=== PATIENT | female | born 1985 | race Two or more races ===

== ENCOUNTER 2018-08-13 16:38 | Emergency (ER) | payer SELFPAY ==
[~2018-08-13] VITALS: Ht 157.5 cm; Wt 65.5 kg
[2018-08-13 17:06] VITALS: BP 123/79
[2018-08-13 17:51] LABS: Basophils # (auto) 0 uL; Basophils % (auto) 0.2 % (0.0-2.0); Eosinophils # (auto) 0.1 uL; Eosinophils % (auto) 0.5 % (0.0-7.0); Hematocrit 40.4 % (36.0-46.0); Hemoglobin 13.8 g/dL (12.2-16.2); Lymphocytes # (auto) 2.1 uL; Lymphocytes % (auto) 20.8 % (10.0-50.0); Mean Corpuscular Hemoglobin 31.5 pg (28.0-32.0); Mean Corpuscular Hgb Conc. 34.2 g/dL (32.0-36.0); Monocytes # (auto) 0.6 uL; Monocytes % (auto) 6.1 % (0.0-12.0); Neutrophils # (auto) 7.4 uL; Neutrophils % (auto) 72.4 % (37.0-80.0); Nucleated Red Blood Cells % 0.1 %; Platelet Count (auto) 294 10^3/uL (140-450); Red Blood Cells 4.39 10^6/uL (4.0-5.20); Red Cell Distribution Width 12.9 % (11.8-14.3); White Blood Cell 10.2 10^3/uL (4.4-10.8)
[2018-08-13 18:01] LABS: Urine Bacteria FEW /hpf (None Seen); Urine Blood 2+ /uL (Negative); Urine Specific Gravity 1.005 (1.001-1.035); Urine WBC 1 /hpf (0 - 5)
[2018-08-13 18:14] LABS: Albumin 3.7 g/dL (3.4-5.0); Potassium 3.8 mmol/L (3.5-5.1)
[2018-08-13 18:16] LABS: BUN/Creatinine Ratio 19.5
[2018-08-13 18:18] LABS: Bilirubin, Total 0.2 mg/dL (0.2-1.0); Total Protein 8.1 g/dL (6.4-8.2)
== END 2018-08-14 02:32 | disposition left against medical advice (07) ==
LOC: ER 16:50
DX: N93.9 Abnormal uterine and vaginal bleeding, unspecified (principal); Z53.21 Procedure and treatment not carried out due to patient leaving prior to being seen by health care provider
CPT/HCPCS: 36415; 80053; 81001; 84702; 85025

== ENCOUNTER 2018-11-09 20:27 | Observation (INO) | payer MEDICAID ==
[2018-11-09 21:14] LABS: Urine Bacteria MOD /hpf (None Seen); Urine Blood 2+ /uL (Negative); Urine Hyaline Cast FEW /lpf (0 - 2); Urine Specific Gravity 1.003 (1.001-1.035); Urine WBC 8 /hpf (0 - 5)
== END 2018-11-09 21:52 | disposition home or self-care (01) | DRG 566 ==
LOC: LDRP 20:27
PROVIDERS: ADMIT Specialist; ATTEND Specialist
DX: O21.2 Late vomiting of pregnancy (principal); O26.892 Other specified pregnancy related conditions, second trimester; R19.7 Diarrhea, unspecified; R10.30 Lower abdominal pain, unspecified; R50.9 Fever, unspecified; Z3A.21 21 weeks gestation of pregnancy
CPT/HCPCS: 59025; 81001; 81002; 87086; G0378; 87088; 87186

== ENCOUNTER 2018-11-10 16:54 | Emergency (ER) | payer MEDICAID ==
[2018-11-10 17:43] LABS: Urine Bacteria MOD /hpf (None Seen); Urine Blood 2+ /uL (Negative); Urine Budding Yeast FEW /hpf (None Seen); Urine Specific Gravity 1.011 (1.001-1.035); Urine WBC 37 /hpf (0 - 5)
[2018-11-10 18:28] LABS: Hemoglobin 12.3 g/dL (12.2-16.2); Red Blood Cells 3.94 10^6/uL (4.0-5.20); White Blood Cell 10.3 10^3/uL (4.4-10.8)
[2018-11-10 18:35] LABS: Hematocrit 36.1 % (36.0-46.0); Mean Corpuscular Hemoglobin 31.3 pg (28.0-32.0); Mean Corpuscular Hgb Conc. 34.2 g/dL (32.0-36.0); Mean Corpuscular Volume 91.6 fL (80.0-100.0); Platelet Count (auto) 243 10^3/uL (140-450); Red Cell Distribution Width 12.7 % (11.8-14.3)
[2018-11-10 18:40] LABS: Basophils % (manual) 0 (0.0-2.0); Blast Cells 0; Eosinophils % (manual) 0 (0-7); Metamyelocytes % 0; Myelocytes % 0; Promyelocytes % 0; Reactive Lymphocytes 0
[2018-11-10 18:52] LABS: Albumin 2.7 g/dL (3.4-5.0); BUN/Creatinine Ratio 13.7; Potassium 3.2 mmol/L (3.5-5.1)
[2018-11-10 18:56] LABS: Bilirubin, Total 0.3 mg/dL (0.2-1.0); Total Protein 6.7 g/dL (6.4-8.2)
[2018-11-10 19:24] LABS: Band Neutrophils % (manual) 18; Lymphocytes % (manual) 7 (10.0-50.0); Monocytes % (manual) 4 (0-12)
[2018-11-10 19:30] VITALS: BP 106/59
== END 2018-11-10 20:01 | disposition home or self-care (01) ==
LOC: ER 16:54
DX: O23.42 Unspecified infection of urinary tract in pregnancy, second trimester (principal); O98.812 Other maternal infectious and parasitic diseases complicating pregnancy, second trimester; B37.9 Candidiasis, unspecified; Z3A.21 21 weeks gestation of pregnancy
CPT/HCPCS: 36415; 80053; 81001; 84702; 85007; 85027

== ENCOUNTER 2018-12-27 12:00 | Observation (INO) | payer MEDICAID ==
[2018-12-27] MEDS ORDERED: PREN-96 PO (12:49)
== END 2018-12-27 14:25 | disposition home or self-care (01) | DRG 566 ==
LOC: LDRP 12:00
PROVIDERS: ADMIT Obstetrics & Gynecology; ATTEND Obstetrics & Gynecology
DX: O26.892 Other specified pregnancy related conditions, second trimester (principal); R50.9 Fever, unspecified; R51 Headache; Z3A.27 27 weeks gestation of pregnancy
CPT/HCPCS: 59025; 81002; G0378

== ENCOUNTER 2019-03-06 09:10 | Inpatient (IN) | payer MEDICAID ==
[~2019-03-06] VITALS: Ht 160 cm; Wt 70.8 kg
[2019-03-06] VITALS (12 sets, daily range): BP systolic 101–138; BP diastolic 51–88
[~2019-03-06 09:10] MED LIST: PREN-96 PO
[2019-03-06] MEDS ORDERED: TETRACAINE 1% INJ 2 ML VIAL IJ ONE (10:47)
[2019-03-06] MEDS ORDERED: MORPHINE SULF(PF) 0.5MG/ML 10ML VIAL ONE (10:49)
[2019-03-06] MEDS ORDERED: OXYTOCIN 10 UNIT/ML 10ML VIAL ONE (10:49)
[2019-03-06] MEDS ORDERED: fentaNYL CITRATE 100 MCG/2 ML VL ONE (10:49)
[2019-03-06] MEDS ORDERED: SODIUM CHLORIDE LOCK 10 ML ONE (10:49)
[2019-03-06] MEDS ORDERED: MIDAZOLAM HCL 1MG/1ML-2 ML VIAL ONE (10:49)
[2019-03-06] MEDS ORDERED: ceFAZolin 1GM VL ONE (10:49)
[2019-03-06] MEDS ORDERED: ONDANSETRON HCL 4 MG/2 ML VIAL ONE ×2 (10:50→11:33)
[2019-03-06 10:51] LABS: Basophils # (auto) 0 uL; Basophils % (auto) 0.1 % (0.0-2.0); Eosinophils # (auto) 0 uL; Eosinophils % (auto) 0.1 % (0.0-7.0); Hematocrit 35.9 % (36.0-46.0); Hemoglobin 11.9 g/dL (12.2-16.2); Lymphocytes # (auto) 1.3 uL; Lymphocytes % (auto) 10.9 % (10.0-50.0); Mean Corpuscular Hemoglobin 29.3 pg (28.0-32.0); Mean Corpuscular Volume 88.8 fL (80.0-100.0); Monocytes # (auto) 0.7 uL; Monocytes % (auto) 5.7 % (0.0-12.0); Neutrophils # (auto) 9.9 uL; Neutrophils % (auto) 83.2 % (37.0-80.0); Platelet Count (auto) 370 10^3/uL (140-450); Red Blood Cells 4.05 10^6/uL (4.0-5.20); White Blood Cell 11.8 10^3/uL (4.4-10.8)
[2019-03-06 11:12] LABS: INR < 0.93 (0.9-1.15); Partial Thromboplastin Time 26.5 sec (23.64-32.05)
[2019-03-06 11:20] LABS: Albumin 2.3 g/dL (3.4-5.0); Calcium 8.4 mg/dL (8.5-10.1); Potassium 3.6 mmol/L (3.5-5.1)
[2019-03-06 11:22] LABS: BUN/Creatinine Ratio 11.5
[2019-03-06 11:24] LABS: Bilirubin, Total 0.4 mg/dL (0.2-1.0); Total Protein 6.9 g/dL (6.4-8.2)
[2019-03-06] MEDS ORDERED: CARBOPROST TROMETHAMINE 250 MCG/1ML VIAL IM ONE ×2 (11:33→11:48)
[2019-03-06] MEDS ORDERED: METOCLOPRAMIDE HCL 5MG/ml INJ 2ml VIAL ONE (11:33)
[2019-03-06] MEDS ORDERED: METHYLERGONOVINE MALEATE 0.2 MG/ML AMP IM ONE (11:45)
[2019-03-06 11:54] LABS: Urine Bacteria NONE SEEN /hpf (None Seen); Urine Blood Negative /uL (Negative); Urine Specific Gravity 1.011 (1.001-1.035); Urine WBC 8 /hpf (0 - 5)
[2019-03-06] MEDS ORDERED: LACT. RINGERS/OXYTOCIN 20UNITS 1,000 ML IV SCH (12:20)
[2019-03-06] MEDS ORDERED: NALOXONE HCL 0.4 MG/ML VIAL IV PRN (12:30)
[2019-03-06] MEDS ORDERED: diphenhdrAMINE HCL 50 MG/1 ML VL IV PRN (12:30)
[2019-03-06] MEDS ORDERED: ceFAZolin 1GM/50ML 50 ML IV SCH (12:30)
[2019-03-06] MEDS ORDERED: IOHEXOL 300 MG/ML 100ML BOTTLE IJ ONE (12:32)
[2019-03-06] MEDS ORDERED: IOTHALAMATE MEGLUMINE INJ 250ML BOT UR ONE (13:24)
[2019-03-06] MEDS: HYDROmorphone HCL 2 MG/ML VL IV PRN ×2 (14:02→14:17)
--- NOTE | 2019-03-06 15:15 | NUR ---
Pt received from pacu. Transported on bed. SBAR received from IGNACIO Rios. Incision on lower abdomen covered with dressing. Small amount of serous fluid, marked with sharpie. IV in right hand 20g. Infusing LR with pitocin. Placed on pump. Abdominal binder in place. Peripad clean. No vaginal bleeding noted. Johnson catheter draining red fluid, no kinks in tubing, hanging below bladder, patent. Started on frequent vital signs. SCDs on bilateral lower extremities. Placed on machine working properly. Educated on purpose of SCDs to prevent blood clots. IS at [facility]. Educated on purpose to prevent PNA and need to use 10x hour. Verbalized understanding. Demonstrated proper technique reached 750. Received order from Dr Klein to replace 16f johnson with 20g johnson and to have patient keep johnson in for four weeks. Fundus 1 above umbilicus firm. Board updated. Educated on POC, pain management. Verbalized understanding. FOB, and 2 children at [facility]. Addendum: 03/06/19 at 1729 by LORENZA HOLM RN Pt received hemabate, cytotec, methergine in PACU.
--- NOTE | 2019-03-06 15:30 | NUR ---
16 F catheter removed. 20 F catheter placed per policy under sterile technique. Patent tolerated well. Calzada place below bladder, no kinks noted, secured to right leg, patent draining red fluid. Pt tolerated well.
--- NOTE | 2019-03-06 16:45 | NUR ---
Dr Anand made rounds. Lashonda kapoor translated. Informed of bladder damage that occured during due to the lower position of . Johnson catheter will remain in place for four weeks. Pt will f/u with Dr Anand weekly and will f/u with Dr Klein in four weeks. Dr Anand informed pt that she has only on kidney that may need an US on a follow up appointment, but the patient's ureter is working properly. Educated on prescription for macrobid due to johnson placement. Received order for social service consult for home health regarding johnson cath care. All questions and concerns answered by Dr Anand. Pt and family verbalized understanding of all plans of care, and new diagnosis.
[2019-03-06] MEDS: ceFAZolin 1GM/50ML 50 ML IV SCH (17:45)
[2019-03-06] MEDS ORDERED: LACTATED RINGER'S 1,000 ML IV SCH (18:00)
--- NOTE | 2019-03-06 18:40 | NUR ---
Dressing to lower abdominal incision intact, small amount of serosanguineous drainage noted. Drainage circled, timed and dated. Will continue to monitor. Addendum: 03/06/19 at 2054 by Fina Bui RN Amended: Links added.
[2019-03-06 21:18] LABS: Basophils # (auto) 0 uL; Basophils % (auto) 0.1 % (0.0-2.0); Eosinophils # (auto) 0 uL; Hematocrit 24.7 % (36.0-46.0); Hemoglobin 8.7 g/dL (12.2-16.2); Lymphocytes # (auto) 0.8 uL; Lymphocytes % (auto) 4.5 % (10.0-50.0); Mean Corpuscular Hemoglobin 31.5 pg (28.0-32.0); Mean Corpuscular Hgb Conc. 35.4 g/dL (32.0-36.0); Monocytes # (auto) 0.6 uL; Monocytes % (auto) 3.7 % (0.0-12.0); Neutrophils # (auto) 16.2 uL; Neutrophils % (auto) 91.7 % (37.0-80.0); Platelet Count (auto) 292 10^3/uL (140-450); Red Blood Cells 2.78 10^6/uL (4.0-5.20); Red Cell Distribution Width 15.1 % (11.8-14.3); White Blood Cell 17.7 10^3/uL (4.4-10.8)
[2019-03-06] MEDS: MORPHINE SULFATE 4 MG/ML SYR/VIAL IV PRN (21:59)
--- NOTE | 2019-03-06 22:30 | NUR ---
Dr. Klein at bedside to assess patient post . Orders received for 500mL LR bolus now x 1, and to increase IV fluid rate to 175mL/hr. Orders will be followed.
[2019-03-07] VITALS (25 sets, daily range): BP systolic 89–130; BP diastolic 50–67
[2019-03-07] MEDS: ceFAZolin 1GM/50ML 50 ML IV SCH ×3 (01:59→17:31)
[2019-03-07] MEDS: MORPHINE SULFATE 4 MG/ML SYR/VIAL IV PRN ×3 (03:33→17:28)
[2019-03-07] MEDS ORDERED: RHO (D) IMMUNE GLOBULIN 300 MCG INJ IM ONE (03:45)
[2019-03-07 06:06] LABS: RPR Non Reactive (Non Reactive)
[2019-03-07 07:16] LABS: Basophils # (auto) 0 uL; Basophils % (auto) 0.2 % (0.0-2.0); Eosinophils # (auto) 0 uL; White Blood Cell 13.6 10^3/uL (4.4-10.8)
[2019-03-07 07:21] LABS: Hematocrit 19.7 % (36.0-46.0); Lymphocytes # (auto) 1.5 uL; Lymphocytes % (auto) 10.7 % (10.0-50.0); Mean Corpuscular Hemoglobin 30.8 pg (28.0-32.0); Mean Corpuscular Hgb Conc. 34.6 g/dL (32.0-36.0); Mean Corpuscular Volume 89.2 fL (80.0-100.0); Monocytes # (auto) 0.9 uL; Monocytes % (auto) 6.3 % (0.0-12.0); Neutrophils # (auto) 11.2 uL; Neutrophils % (auto) 82.8 % (37.0-80.0); Platelet Count (auto) 249 10^3/uL (140-450); Red Blood Cells 2.21 10^6/uL (4.0-5.20); Red Cell Distribution Width 15.2 % (11.8-14.3)
[2019-03-07 07:37] LABS: Hemoglobin 6.8 g/dL (12.2-16.2)
--- NOTE | 2019-03-07 07:45 | NUR ---
NOTIFIED DR. CAIN, STATUS UPDATE GIVEN, DR. CAIN NOTIFIED OF RECENT CBC RESULTS (HGB 6.8, HCT 19.7, PLT 249) ALL TRENDING VITAL SIGNS, TRENDING HOURLY URINE OUTPUT, HEMATURIA NOTED, PT DENIES ANY HEADACHE, DIZZINESS OR NAUSEA. ORDERS RECEIVED FROM DR. CAIN TO TRANSFUSE 2 UNITS OF PRBC'S AND REPEAT CBC LAB DRAW 2 HOURS POST TRANSFUSION. READ BACK AND VERIFIED ORDERS. WILL CARRY OUT.
--- NOTE | 2019-03-07 08:05 | NUR ---
DR. CAIN AT PT BEDSIDE FOR PT EVALUATION, PT UPDATED ON CURRENT STATUS. ORDERS RECEIVED FROM DR. CAIN TO CONTINUE PT ON BEDREST, CLEAR LIQUID DIET, DECREASE LR RATE TO 30ML/HR, AND ANCEF 1GM Q8HRS. READ BACK AND VERIFIED ORDERS. WILL CARRY OUT. SHIFT LEADER PROVIDED.
[2019-03-07] MEDS ORDERED: LACTATED RINGER'S 1,000 ML IV SCH (08:15)
--- NOTE | 2019-03-07 08:55 | NUR ---
BLOOD TRANSFUSION EDUCATION PROVIDED TO PATIENT VIA BLUE PHONE BY INFORMATION TECHNOLOGY ARCHITECT ÁNGEL, INFORMATION TECHNOLOGY ARCHITECT ID #[id number]. PT EDUCATED IN [place] THE PLAN OF CARE INCLUDING THE INDICATION FOR A BLOOD TRANSFUSION AND ALL THE RISKS AND BENEFITS DISCUSSED. PT GIVEN BLOOD PRODUCTS PAMPHLET AND EDUCATIONS PROVIDED. ALL PTS QUESTIONS AND CONCERNS ADDRESSED AT THIS TIME.
--- NOTE | 2019-03-07 08:55 | NUR ---
IV insertion IV access obtained, via clean sterile technique by inserting 20 gauge catheter at RIGHT FOREARM after 1 attempt(s). IV secured properly. No trauma to site. Patient tolerated procedure well.
--- NOTE | 2019-03-07 09:15 | NUR ---
BLOOD TRANSFUSION 1ST UNIT OF O- BLOOD STARTED AT [address] CAIN ORDER, BASELINE VITALS SIGNS TAKEN AND WITHIN NORMAL LIMITS, PT DENIES ANY S/S OF DISTRESS OR SOB. INFUSION RATE STARTED AT 75ML/HR. WILL CONTINUE TO MONITOR.
--- NOTE | 2019-03-07 11:53 | NUR ---
1ST UNIT PRBC'S TRANSFUSED 1 UNIT OF PRBC'S TRANSFUSED. NO TRANSFUSION REACTIONS NOTED AT THIS TIME, VITAL SIGNS WITHIN PATIENTS NORMAL LIMITS, TOLERATING WELL. 2ND UNIT OF PRBC'S PREPARING TO BE HUNG. WILL CONTINUE OT MONITOR.
--- NOTE | 2019-03-07 12:15 | NUR ---
NOTIFIED DR. CAIN, STATUS UPDATE GIVEN, 1ST UNIT OF PRBC'S TRANSFUSED. DR. CAIN NOTIFIED OF TRENDING VITAL SIGNS GIVEN, TRENDING URINE OUTPUTS GIVEN, PT REQUESTING TO USE THE BATHROOM FOR A BOWEL MOVEMENT. PT STABLE AT THIS TIME. DR. CAIN STATED THAT PT CAN AMBULATE TO THE BATHROOM. PT STABLE AT THIS TIME. READ BACK AND VERIFIED ORDERS. WILL CARRY OUT.
--- NOTE | 2019-03-07 12:25 | NUR ---
Ambulation: Patient OOB with standby assistance by RN. Patient ambulated to bathroom with steady gait. Patient unable to have a bowel movement at this time. Pts johnson catheter is patent and draining red wine colored urine to gravity. Pericare teaching provided with returned demonstration by patient. Clean gown provided and bed linen changed. Patient ambulated back to bed with steady gait and no distress noted. Preparing to hang 2nd unit of blood. Will continue to monitor.
--- NOTE | 2019-03-07 12:40 | NUR ---
BLOOD TRANSFUSION 2ND UNIT OF O- BLOOD STARTED AT [address] CAIN ORDER, BASELINE VITALS SIGNS TAKEN AND WITHIN NORMAL LIMITS, PT DENIES ANY S/S OF DISTRESS OR SOB. INFUSION RATE STARTED AT 75ML/HR. WILL CONTINUE TO MONITOR.
--- NOTE | 2019-03-07 14:25 | NUR ---
DR. MCKEON AT PT BEDSIDE, STATUS UPDATE GIVEN, TRENDING VITAL SIGNS GIVEN, TRENDING URINE OUTPUTS GIVEN, TRENDING URINE OUTPUT APPEARANCE THIS MORNING IN ANNE BAG WAS A RED WINE COLOR, NOW CLEAR YELLOW URINE IN ANNE BAG. NO S/S OF DISTRESS OR SOB NOTED. PT DENIES ANY PAIN AT THIS TIME. WILL CONTINUE TO MONITOR.
--- NOTE | 2019-03-07 15:28 | NUR ---
2ND UNIT PRBC'S TRANSFUSED 2 UNIT OF PRBC'S TRANSFUSED. NO TRANSFUSION REACTIONS NOTED AT THIS TIME, VITAL SIGNS WITHIN PATIENTS NORMAL LIMITS, TOLERATING WELL. PT DENIES ANY S/S OF DISTRESS, PAIN OR SOB AT THIS TIME. WILL CONTINUE TO MONITOR. 2 HR CBC POST TRANSFUSION ORDERED FOR 1730. WILL CONTINUE TO MONITOR.
--- NOTE | 2019-03-07 16:00 | NUR ---
DR. MCKEON NOTIFIED THAT PTS 2ND UNITS OF BLOOD IS COMPLETED. ORDERS RECEIVED FROM DR. MCKEON FOR 0.9%NS AT 175ML/HR. READ BACK AND VERIFIED ORDERS. WILL CARRY OUT.
[2019-03-07] MEDS ORDERED: SODIUM CHLORIDE 0.9% 1,000 ML IV ONE (16:15)
--- NOTE | 2019-03-07 17:40 | NUR ---
GEAR CUTTING MACHINE OPERATOR AT BEDSIDE FOR CBC BLOOD DRAW.
[2019-03-07 18:04] LABS: Basophils # (auto) 0 uL; Eosinophils # (auto) 0 uL; Hematocrit 29.2 % (36.0-46.0); Hemoglobin 9.9 g/dL (12.2-16.2); Lymphocytes # (auto) 1.6 uL; Lymphocytes % (auto) 9.9 % (10.0-50.0); Mean Corpuscular Hemoglobin 30.2 pg (28.0-32.0); Mean Corpuscular Hgb Conc. 33.8 g/dL (32.0-36.0); Mean Corpuscular Volume 89.3 fL (80.0-100.0); Monocytes # (auto) 0.8 uL; Monocytes % (auto) 5.1 % (0.0-12.0); Neutrophils # (auto) 13.4 uL; Platelet Count (auto) 240 10^3/uL (140-450); Red Blood Cells 3.27 10^6/uL (4.0-5.20); Red Cell Distribution Width 14.8 % (11.8-14.3); White Blood Cell 15.8 10^3/uL (4.4-10.8)
--- NOTE | 2019-03-07 18:10 | NUR ---
DR. MCKEON NOTIFIED, STATUS UPDATE GIVEN, CBC RESULTS GIVEN, TRENDING VITAL SIGNS GIVEN, HOURLY URINE OUTPUTS GIVEN, CHEERY URINE NOTED IN ANNE BAG, PT DENIES ANY S/S OF DISTRESS OR SOB, PT HAS ACTIVE BOWEL SOUNDS, NO FLATUS AT THIS TIME. ORDERS RECEIVED FROM DR. MCKEON FOR POST OP DAY 1 ORDERS, CONTINUE HOURLY URINE OUTPUTS, AND ADVANCE DIET TOLERATED. READ BACK AND VERIFIED ORDERS. WILL CARRY OUT.
--- NOTE | 2019-03-07 18:10 | NUR ---
Received report, assumed care.
--- NOTE | 2019-03-07 18:15 | NUR ---
Initiated assessment. Family at bedside. With interpretation of patients daughter, pt complains of pain 10/10. software team leader Larry PIERRE at bedside, johnson catheter kinked. Johnson cath anchored to pt right thigh. Johnson draining to gravity pink tinged. See flowsheet for complete assessment. Family at bedside. Per pt pain decreased to 4/10.
--- NOTE | 2019-03-07 18:30 | NUR ---
PT REPORT GIVEN TO Tod MASTERSON RN ON STABLE PATIENT, ANNE CATHETER PATENT AND DRAINING CHEERY COLORED URINE TO GRAVITY, PT SITTING SEMIFOWLERS IN BED. BED IN LOWEST POSITION, 2 SIDE RAILS UP, CALL LIGHT WITHIN REACH, FAMILY AT BEDSIDE. PT DENIES ANY PAIN AT THIS TIME, RELINQUISHED CARE.
[2019-03-07] MEDS ORDERED: HYDROcodone-ACET 5/325MG TAB PO PRN (18:45)
[2019-03-07] MEDS ORDERED: IBUPROFEN 800 MG TAB PO PRN (18:45)
--- NOTE | 2019-03-07 19:00 | NUR ---
At bedside with pain medicaton per pt request. 02/23 pain. Admin 2 [place]. SCD's bilateral in place, IV fluids infusing to right hand NS9. Site benign.
[2019-03-07] MEDS: SIMETHICONE 80 MG CHEWABLE TABLET PO PRN (19:18)
[2019-03-07] MEDS: HYDROcodone-ACET 5/325MG TAB PO PRN (19:19)
--- NOTE | 2019-03-07 20:00 | NUR ---
Patient denies pain, with minimal assist patient out of bed and ambulating. Stand by assist. Patient ambulated 300 feet independently, denying dizziness or pain. Linen change provided, warm water basin and washcloth/towels. Independent self hygiene provided.
[2019-03-07] MEDS: DOCUSATE SOD 100 MG CAP PO SCH (21:46)
--- NOTE | 2019-03-07 22:25 | NUR ---
Dr Anand called for update on pt. SBAR provided. No new orders
[2019-03-07] MEDS ORDERED: ONDANSETRON HCL 4 MG/2 ML VIAL ONE (22:57)
[2019-03-07] MEDS ORDERED: ONDANSETRON HCL 4 MG/2 ML VIAL IV PRN (23:00)
--- NOTE | 2019-03-07 23:45 | NUR ---
Ambulated through out unit, 500 feet, tolerated well, pt reports burping constantly. Declines need for pain medication
[2019-03-08] MEDS: ceFAZolin 1GM/50ML 50 ML IV SCH ×3 (01:55→17:46)
[2019-03-08 03:00] VITALS: BP 113/58
--- NOTE | 2019-03-08 03:00 | NUR ---
Out of bed to ambulated. Pt ambulated 200 feet. Pt continues to burp frequently. Pt tolerated well.
[2019-03-08] MEDS: HYDROcodone-ACET 5/325MG TAB PO PRN (03:41)
[2019-03-08 06:59] VITALS: BP 107/55
[2019-03-08] MEDS ORDERED: PREN-96 PO (09:31)
[2019-03-08] MEDS ORDERED: FERR-7 PO (09:32)
[2019-03-08] MEDS: DOCUSATE SOD 100 MG CAP PO SCH (10:09)
[2019-03-08 11:00] VITALS: BP 113/63
--- NOTE | 2019-03-08 12:03 | NUR ---
REPORT: REPORT RECEIVED FROM HOA PIERRE TO RESUME CARE OF PT FOR SHIFT. Addendum: 03/08/19 at 1315 by Che Carmona RN NOT 1203, REPORT RECEIVED AT 1040.
--- NOTE | 2019-03-08 12:30 | NUR ---
UPDATE: PT HAS BEEN AMBULATING THROUGHOUT SHIFT THUS FAR IN ROOM, SAM-CARE GIVEN AND PT HAS BEEN TOLERATING PAIN/STATING NO PAIN AT TIME. EDUCATION GIVEN FOR HOME HEALTH WITH ANNE CATHETER AND PATIENT IS VERBALIZING UNDERSTANDING THAT SHE WILL BE GOING HOME WITH ANNE CATHETER IN PLACE. GAVE EDUCATION FOR AND CARE OF AND PATIENT VERBALIZED UNDERSTANDING WITH ASSISTANCE FROM FAMILY MEMBERS WELL.
--- NOTE | 2019-03-08 13:00 | NUR ---
CAKE: CELEBRATORY CAKE GIVEN TO PATIENT.
--- NOTE | 2019-03-08 13:42 | NUR ---
CASE MANAGEMENT: CALLED CASE MANAGEMENT AND LEFT MESSAGE TO FOLLOW-UP WITH SOCIAL SERVICE CONSULT FOR HOME HEALTH FOR ANNE CATHETER. WAITING FOR CALL BACK.
--- NOTE | 2019-03-08 13:57 | NUR ---
LEG BAG: LEG BAG OBTAINED FOR ANNE CATHETER. PATIENT IS GOING TO BE DISCHARGED HOME POSSIBLY TOMORROW WITH ANNE CATHETER. EDUCATION GIVEN ON PROPER USE, HOW TO EMPTY AND HOW TO PROPERLY USE LEG BAG FOR HOME ANNE CATHETER.
--- NOTE | 2019-03-08 14:20 | NUR ---
PAIN: MEDICATED WITH MOTRIN FOR PAIN. WILL CONTINUE TO MONITOR.
--- NOTE | 2019-03-08 15:24 | NUR ---
IV: REMOVED IV TO RIGHT HAND, 20G WITH CATHETER FULLY INTACT. PT TOLERATED WELL. Addendum: 03/08/19 at 1526 by Che Carmona RN PT STILL HAS IV TO RIGHT FOREARM, 20G.
[2019-03-08 15:53] VITALS: BP 109/57
--- NOTE | 2019-03-08 15:55 | NUR ---
PAIN/COMFORT: PT REPORTING THAT SHE HAS NO PAIN AFTER MOTRIN WAS GIVEN EARLIER. WILL CONTINUE TO MONITOR.
--- NOTE | 2019-03-08 17:30 | NUR ---
TEACHING: PROVIDED PT WITH ADDITIONAL EDUCATION FOR ANNE CATHETER BAG. ANNE CATHETER CONTINUES TO DRAIN TO LEG BAG, APPROX. 300ML EMPTIED (WILL PLACE INTO I&0) THAT IS CLEAR YELLOW WITH SLIGHT COLOR OF PINK ON OCCASION IN TUBING. PROVIDED EDUCATION AND DEMONSTRATED HOW TO EMPTY BAG FOR FAMILY AND PATIENT TO WATCH. FAMILY AND PATIENT VERBALIZED UNDERSTANDING.
--- NOTE | 2019-03-08 18:20 | NUR ---
REPORT: REPORT GIVEN TO BUYER AGENT RN TO RESUME CARE OF PT.
[2019-03-08 19:10] VITALS: BP 99/57
[2019-03-08 23:00] VITALS: BP 96/52
[2019-03-09] MEDS: SIMETHICONE 80 MG CHEWABLE TABLET PO PRN (00:15)
[2019-03-09] MEDS: DOCUSATE SOD 100 MG CAP PO SCH ×2 (00:15→11:01)
[2019-03-09] MEDS: ceFAZolin 1GM/50ML 50 ML IV SCH ×2 (00:16→11:02)
[2019-03-09 03:00] VITALS: BP 110/55
--- NOTE | 2019-03-09 06:44 | NUR ---
REPORT: REPORT RECEIVED FROM CLINICAL RN MANAGER RN TO RESUME CARE OF PT.
[2019-03-09 07:15] VITALS: BP 118/62
--- NOTE | 2019-03-09 07:17 | NUR ---
NURSE MOLECULAR SPECTROSCOPIST VISIT: NURSE MOLECULAR SPECTROSCOPIST IN AT BEDSIDE TO ASSESS PATIENT. AT TIME, PATIENT IS [place] SPEAKING AND NURSE MOLECULAR SPECTROSCOPIST SPOKE TO PATIENT IN [place] AND GAVE FULL EDUCATION ON POST-OP EDUCATION, INSTRUCTIONS AND CARE AT HOME. NURSE MOLECULAR SPECTROSCOPIST DID PERFORM FULL PHYSICAL ASSESSMENT OF PATIENT AND ALL QUESTIONS AND CONCERNS ADDRESSED. NURSE MOLECULAR SPECTROSCOPIST DID REMOVE [id number] TO LOWER ABDOMINAL INCISION, CLEANSED SITE AND APPLIED STERI-STRIPS TO AREA. INCISION IS CLEAN, DRY, INTACT, GOOD APPROXIMATION OF SKIN, NO REDNESS, NO OOZING AND NO PAIN NOTED TO AREA. ABDOMINAL BINDER PUT BACK IN PLACE. AWARE THAT PATIENT HAS ANNE CATHETER STILL IN PLACE AND CONNECTED TO LEG BAG FOR DRAINING. PATIENT DID STATE THAT SHE EMPTIED BAG X2 LAST NIGHT. AWARE THAT PT WILL HAVE A FOLLOW-UP APPOINTMENT WITH DR. CAIN AND A FOLLOW-UP APPOINTMENT WITH DR. OROSCO FOR UROLOGY IN 2 WEEKS. PATIENT VERBALIZED COMPLETE UNDERSTANDING FOR FOLLOW-UP APPOINTMENTS, CARE OF INCISION AT HOME, HOW TO PROPERLY GIVE SAM-CARE TO PREVENT INFECTION FROM OCCURRING AND REASON FOR ANNE CATHETER TO BE LEFT IN PLACE. AWARE THAT SOCIAL SERVICE WAS CONSULTED TO ARRANGE FOR HOME HEALTH-WILL CALL AND FACILITATE ARRANGEMENTS FOR HOME HEALTH SERVICES TODAY. UPON SPEAKING TO PT, SHE WOULD LIKE TO BE DISCHARGED HOME TODAY. NURSE MOLECULAR SPECTROSCOPIST WILL INFORM DR. CAIN AND OK FOR DISCHARGE HOME TODAY AFTER HOME HEALTH IS ARRANGED AND CONFIRMED FOR HOME. CONTINUE CARE FOR SHIFT.
--- NOTE | 2019-03-09 09:19 | NUR ---
SOCIAL SERVICE: SOCIAL SERVICE IN AT BEDSIDE. UPDATED ON PT STATUS AND AWARE OF REASONINGS FOR HOME HEALTH TO BE SET UP. SPOKE TO KENNY AND SHE IS GOING TO FACILITATE HOME HEALTH PRIOR TO DISCHARGE TODAY.
--- NOTE | 2019-03-09 09:45 | NUR ---
SOCIAL SERVICE: SPOKE TO ARLETTE FROM SOCIAL SERVICE AND UPDATED THAT DUE TO PT INSURANCE COVERAGE, PT DOES NOT QUALIFY FOR HOME HEALTH AT THIS TIME AND PATIENT IS NOT ABLE TO RECEIVE IN HOME SERVICES AFTER DISCHARGE HOME. DID SPEAK TO ARLETTE HERNÁNDEZ WELL AND SHE INFORMED MYSELF THAT PT MAY GO TO URGENT CARE IF NEEDED DUE TO NO INSURANCE COVERAGE FOR HOME HEALTH. PATIENT MADE FULLY AWARE AND VERBALIZED UNDERSTANDING AFTER SPEAKING IN [place] WITH JACK SPOOLER TENDER THAT SHE NEEDS TO GO TO URGENT CARE IN PLACE OF HOME HEALTH SERVICES. VERBALIZED UNDERSTANDING.
--- NOTE | 2019-03-09 10:00 | NUR ---
APPOINTMENT: CALLED JD HUNTER TO SCHEDULE FOLLOW-UP APPOINTMENT FOR PATIENT FOR CARE OF ANNE CATHETER. APPOINTMENT MADE FOR 03/12/2019 AT 10:30 AM AT [id number] [facility], [place] [address]. PATIENT MADE AWARE.
--- NOTE | 2019-03-09 10:30 | NUR ---
DR. OROSCO OFFICE: DR. OROSCO OFFICE CALLED. SPOKE TO EVELIA AND UPDATED THAT PT INSURANCE COVERAGE DOES NOT ALLOW PATIENT TO BE SEEN IN OFFICE A FOLLOW-UP APPOINTMENT AND ONLY IF PATIENT HAS A REFERRAL FROM PRIMARY CARE PHYSICIAN TO FOLLOW-UP WITH. DID PROVIDE NUMBER FOR [facility]Y INSTITUTE AND WILL CALL TO SEE IF DR. OROSCO CONTRACTED [facility]OLOGY INSTITUTE WILL SEE PT WITHOUT REFERRAL. UNKNOWN AT TIME IF PATIENT HAS PRIMARY CARE PHYSICIAN.
[2019-03-09 11:06] VITALS: BP 122/71
--- NOTE | 2019-03-09 11:27 | NUR ---
DR. OROSCO OFFICE: CALLED DR. OROSCO OFFICE FOR [facility] ([place], [place]) WITH [facility]. AWARE OF PATIENT INSURANCE COVERAGE AND THEY DO NOT ACCEPT MEDICAL INSURANCE. INSTRUCTED FOR PATIENT TO GO TO PRIMARY CARE PHYSICIAN FIRST, TO OBTAIN A REFERRAL FOR UROLOGY CENTER AND TO THEN CALL DR. OROSCO OFFICE FOR APPOINTMENT. HOWEVER, PATIENT DOES NOT HAVE A PRIMARY CARE PROVIDER. WILL NOTIFY CASE MANAGEMENT TO FIND PCP AND POSSIBLE APPOINTMENT WITH DR. OROSCO. WILL NOTIFY DR. CAIN.
--- NOTE | 2019-03-09 11:40 | NUR ---
MD CONTACT: DR. CAIN CONTACTED. INFORMED THAT PATIENT DOES NOT HAVE A PRIMARY CARE PROVIDER AND IS NOT ABLE TO BE REFERRED TO DR. OROSCO FOR UROLOGY WITHIN THE 2-3 WEEK REQUEST DUE TO OFFICE NOT ACCEPTING PATIENT INSURANCE. DR. CAIN MADE AWARE THAT PATIENT DOES HAVE AN APPOINTMENT WITH HER FOR FOLLOW-UP ON SATURDAY AT 9:30 AM AND SHE WILL SEE PT, SEE HER ANNE CATHETER AND DR. CAIN WILL MAKE REFERRAL AND SPEAK TO DR. OROSCO FOR FOLLOW UP VISIT FOR PATIENT. WILL INFORM PATIENT AND FAMILY.
--- NOTE | 2019-03-09 12:03 | NUR ---
EDUCATION: PT GIVEN FULL EDUCATION IN [place] REGARDING DISCHARGE INSTRUCTIONS. AWARE THAT SHE HAS A FOLLOW-UP APPOINTMENT ON 03/12/2019 AT 0930, THAT DR. CAIN WILL TAKE CARE OF ANNE CATHETER ON VISIT, THAT DR. CAIN WILL MAKE REFERRAL APPOINTMENT WITH DR. OROSCO ON Saturday03/12/19 VISIT AND THAT BABY ALSO HAS APPOINTMENT ON 03/11/19 AT 1:15 PM. ALL QUESTIONS AND CONCERNS ADDRESSED.
--- NOTE | 2019-03-09 12:07 | NUR ---
IV: IV REMOVED TO RIGHT FOREARM, 20G WITH CATHETER FULLY INTACT.
--- NOTE | 2019-03-09 12:30 | NUR ---
Discharge: Discharge instructions given as ordered. Pt encouraged to go to follow up appointment on , 03/12/2019 at 9:30am. Aware that Dr. Anand will be managing further care for johnson catheter. All questions and concerns addressed. Patient verbalized understanding. Medication reconciliation completed and copy given to patient. All required/requested vaccines given and copies of vaccinations given to patient. Patient encouraged to prepare to depart unit.
[2019-03-09 12:55] VITALS: BP 122/71
--- NOTE | 2019-03-09 12:55 | NUR ---
Discharge: Patient walked to vehicle with all personal belongings, discharge instructions and johnson catheter connected to leg bag, secured in place and verified prior to discharge that patient knows how to empty, fasten, troubleshoot, and secure to leg. Aware of hand hygiene and importance to wash hands with soap and water after every empty. Accompanied by staff and family member. No distress noted at time of departure, no adverse changes in status since initial assessment.
--- NOTE | 2019-03-10 08:31 | NUR ---
Pt will not be able to have home health as none fo the agencies will accept medi-michael. [facility], [facility], [facility], [facility], [place], [facility], and [facility] were are contacted. Pt was advised to go to Urgent care for followup . Pt was given a voucher by Filomena Chaudhary. Pt was also advised that she possibly could move her appoint with Dr. Klein earlier.
== END 2019-03-09 12:55 | disposition home or self-care (01) | DRG 540 ==
LOC: LDRP 09:10 → OBSVTOIN 10:10 → NUR 11:53 → LDRP 12:18
PROVIDERS: ADMIT Obstetrics & Gynecology; ATTEND Obstetrics & Gynecology
PROC: 0UL70ZZ Occlusion of Bilateral Fallopian Tubes, Open Approach (ICD-10-PCS; 2019-03-06)
PROC: 10D00Z1 Extraction of Products of Conception, Low, Open Approach (ICD-10-PCS; principal; 2019-03-06 11:00)
PROC: 30233N1 Transfusion of Nonautologous Red Blood Cells into Peripheral Vein, Percutaneous Approach (ICD-10-PCS; 2019-03-07)
PROC: 30233S1 Transfusion of Nonautologous Globulin into Peripheral Vein, Percutaneous Approach (ICD-10-PCS; 2019-03-08)
DX: O34.211 Maternal care for low transverse scar from previous cesarean delivery (principal); Q60.0 Renal agenesis, unilateral; O60.14X0 Preterm labor third trimester with preterm delivery third trimester, not applicable or unspecified; N13.30 Unspecified hydronephrosis; O34.03 Maternal care for unspecified congenital malformation of uterus, third trimester; O62.2 Other uterine inertia; R31.0 Gross hematuria; D64.9 Anemia, unspecified; O99.02 Anemia complicating childbirth; O99.89 Other specified diseases and conditions complicating pregnancy, childbirth and the puerperium; Z37.0 Single live birth; Z3A.37 37 weeks gestation of pregnancy
CPT/HCPCS: 36415; 36430; 51702; 59025; 72193; 74177; 80053; 81001; 81002; 84112; 85025; 85610; 85730; 86592; 86850; 86870; 86900; 86901; 86920; 86922; 90384; 96361; 96365; 96372; 96374; 96375; G0378; J0690; J2250; J2405; J2590

== ENCOUNTER 2019-03-18 12:11 | Inpatient (IN) | payer MEDICAID ==
[~2019-03-18] VITALS: Ht 160 cm; Wt 64.0 kg
[2019-03-18] MEDS ORDERED: PIPERACILLIN-TAZO 4.5GM 100 ML IV ONE (13:30)
[2019-03-18 13:32] LABS: Eosinophils # (auto) 0 uL; Hemoglobin 12.1 g/dL (12.2-16.2); Mean Corpuscular Volume 89.1 fL (80.0-100.0); Monocytes # (auto) 0.7 uL
[2019-03-18 13:33] LABS: Basophils # (auto) 0 uL; Basophils % (auto) 0.1 % (0.0-2.0); Eosinophils % (auto) 0.1 % (0.0-7.0); Hematocrit 36.2 % (36.0-46.0); Lymphocytes # (auto) 1.4 uL; Lymphocytes % (auto) 9.2 % (10.0-50.0); Mean Corpuscular Hemoglobin 29.8 pg (28.0-32.0); Mean Corpuscular Hgb Conc. 33.5 g/dL (32.0-36.0); Monocytes % (auto) 4.6 % (0.0-12.0); Neutrophils # (auto) 13.2 uL; Red Blood Cells 4.06 10^6/uL (4.0-5.20); Red Cell Distribution Width 14.8 % (11.8-14.3); White Blood Cell 15.3 10^3/uL (4.4-10.8)
[2019-03-18 13:51] LABS: Albumin 3.3 g/dL (3.4-5.0); Potassium 3.5 mmol/L (3.5-5.1)
[2019-03-18 13:52] LABS: Magnesium 2.3 mg/dL (1.6-2.6)
[2019-03-18 13:55] LABS: BUN/Creatinine Ratio 11.9; Bilirubin, Total 0.3 mg/dL (0.2-1.0)
[2019-03-18 14:23] LABS: Platelet Count (auto) 588 10^3/uL (140-450)
[2019-03-18 14:53] LABS: Urine Bacteria NONE SEEN /hpf (None Seen); Urine Blood 3+ /uL (Negative); Urine Mucus FEW (None Seen); Urine WBC 28930 /hpf (0 - 5); Urine WBC Clumps PRESENT /hpf (None Seen)
[2019-03-18] MEDS ORDERED: NITROGLYCERIN 0.4 MG SL TAB SL PRN (16:45)
[2019-03-18] MEDS ORDERED: ONDANSETRON HCL 4 MG/2 ML VIAL IV PRN (16:45)
[2019-03-18] MEDS ORDERED: ACETAMINOPHEN 500 MG TAB PO PRN (16:45)
[2019-03-18] MEDS ORDERED: MORPHINE SULF INJ 2 MG/ML SYRINGE 1ML IV PRN ×2 (16:45)
[2019-03-18] MEDS ORDERED: HYDROcodone-ACET 5/325MG TAB PO PRN (16:45)
[2019-03-18] MEDS: SODIUM CHLORIDE 0.9% 1,000 ML IV SCH (16:57)
[2019-03-18 20:20] VITALS: BP 108/60
--- NOTE | 2019-03-18 20:20 | NUR ---
MS admit from ER NISHI HERNANDEZ admitted to tele/MS after SBAR received. Patient oriented to Jamila jackson RN, unit, room, bed, and unit policies regarding patient care and visiting hours. Patient weighed by bedscale and encouraged to call if they need something. All questions and concerns addressed, patient verbalized understanding. PATIENT IS A/OX4, PRIMARILY WELSH SPEAKING. PATIENT ABLE TO ANSWER ALL QUESTIONS APPROPRIATELY, DENIES ANY PAIN AT THIS TIME. ANNE CATHETER CHANGED IN ER PER PATIENT. PATIENT HAS A ANNE CONNECTED TO A LEG BAG DRAINING DARK BLOOD. SKIN ASSESSMENT DONE. INCISION NOTED TO LOWER ABDOMEN, OPEN TO AIR, HORIZANTAL INCISION INTACT AND SCABBED. PATIENT ABLE TO AMBULATE WITH STANDBY ASSIST. IV NOTED TO RIGHT AC RUNNING NS AT 100ML/HR.
[2019-03-18 22:00] VITALS: BP 108/60
--- NOTE | 2019-03-18 22:15 | NUR ---
CALLED DOWN TO L&D FOR BREAST PUMP PER MD ORDER AND FOR L&D RN TO COME EDUCATE PATIENT ON USE AWAITING FOR AN L&D RN TO BECOME AVAILABLE
--- NOTE | 2019-03-18 23:01 | NUR ---
RECEIVED CALL FROM UPDATED MD ON PATIENT VITALS AND STATUS ORDER TO LEAVE ANNE IN PLACE NO NEW ORDERS AT THIS TIME
--- NOTE | 2019-03-18 23:20 | NUR ---
MRSA SWAB OF NARES SENT TO LAB
--- NOTE | 2019-03-19 00:10 | NUR ---
CALLED L&D FOR A SECOND TIME TO SEE IF ANY STAFF IS AVAILABLE TO BRING BREAST PUMP AND EDUCATE PATIENT ON BREAST PUMP AND DISCARDING MILK STILL NO STAFF AVAILABLE AT THIS TIME
[2019-03-19] MEDS ORDERED: IBUP800T24 PO (01:11)
[2019-03-19] MEDS ORDERED: NITR-52 PO (01:12)
--- NOTE | 2019-03-19 02:15 | NUR ---
Educated pt regarding breast pump, including proper use of equipment, cleaning equipment, and frequency of use. Pt verbalized understanding and provided return demonstration. All questions addressed. Pt's primary RN Jamila at bedside, informed I would be available to return ro help with any further questions or concerns.
--- NOTE | 2019-03-19 02:15 | NUR ---
RN "KARLI" FROM L&D AT BEDSIDE EDUCATING PATIENT ON BREAST PUMP PATIENT ABLE TO RETURN DEMONSTRATION PROPERLY ALL QUESTIONS ANSWERED
[2019-03-19] MEDS: SODIUM CHLORIDE 0.9% 1,000 ML IV SCH (02:29)
[2019-03-19 05:27] VITALS: BP 109/61
[2019-03-19 06:42] LABS: BUN/Creatinine Ratio 18.2; Calcium 8.3 mg/dL (8.5-10.1); Potassium 3.3 mmol/L (3.5-5.1)
[2019-03-19 06:44] LABS: Hemoglobin 10.9 g/dL (12.2-16.2); Mean Corpuscular Volume 88.4 fL (80.0-100.0); Neutrophils # (auto) 9.7 uL
[2019-03-19 06:46] LABS: Basophils # (auto) 0.1 uL; Basophils % (auto) 0.4 % (0.0-2.0); Eosinophils # (auto) 0 uL; Eosinophils % (auto) 0.3 % (0.0-7.0); Lymphocytes # (auto) 1.5 uL; Lymphocytes % (auto) 12.6 % (10.0-50.0); Mean Corpuscular Hgb Conc. 33.9 g/dL (32.0-36.0); Monocytes # (auto) 0.7 uL; Monocytes % (auto) 5.8 % (0.0-12.0); Neutrophils % (auto) 80.9 % (37.0-80.0); Nucleated Red Blood Cells % 0.1 %; Platelet Count (auto) 476 10^3/uL (140-450); Red Blood Cells 3.62 10^6/uL (4.0-5.20); Red Cell Distribution Width 14.5 % (11.8-14.3)
--- NOTE | 2019-03-19 07:24 | NUR ---
CLOSING NOTE REPORT ENDORSED TO DAY SHIFT RN PATIENT IS RESTING IN BED AT THIS TIME. ANNE STILL IN PLACE, CONNECTED TO LEG BAG DRAINING DARK RED BLOOD. BREAST PUMP AT BEDSIDE. CALL LIGHT WITHIN REACH. NO S/S OF DISTRESS.
--- NOTE | 2019-03-19 08:15 | NUR ---
Pt seen by Dr. Anand She ordered CBC for tomorrow, per Dr. Anand she already spoke with Dr. Klein about the case.
[2019-03-19 09:00] VITALS: BP 172/97
[2019-03-19] MEDS ORDERED: BISACODYL 10 MG RECT SUPP PR PRN (09:00)
[2019-03-19] MEDS: FAMOTIDINE 20 MG TAB PO SCH (09:03)
[2019-03-19] MEDS: cefTRIAXone 1GM/50ML D5W 50 ML IV SCH (09:04)
[2019-03-19] MEDS: DOCUSATE CALCIUM 240 MG CAP PO SCH (09:08)
--- NOTE | 2019-03-19 11:06 | NUR ---
PT SEEN BY ANGELA BAUTISTA, HE ORDERED TO CHANGE THE LEG BAG TO URINE BAG.
--- NOTE | 2019-03-19 11:12 | NUR ---
LEG BAG DISCONNECTED AND CHANGED TO URINE BAG ORDERED BY ANGELA BAUTISTA.
[2019-03-19] MEDS: SOD CHL 0.9%/ KCL 20MEQ 1,000 ML IV SCH ×2 (11:53→23:57)
[2019-03-19] MEDS: SIMETHICONE 80 MG CHEWABLE TABLET PO SCH ×3 (12:08→21:57)
--- NOTE | 2019-03-19 13:12 | NUR ---
PT DISCONNECTED FROM IV AND AMBULATED INSIDE THE ROOM.
[2019-03-19 17:00] VITALS: BP 127/78
--- NOTE | 2019-03-19 18:35 | NUR ---
Hematuria total urine output 740ml dark red color.
--- NOTE | 2019-03-19 19:10 | NUR ---
Opening Shift Note Received report from travis Harvey RN. Assumed care of patient, awake and alert. No S/S of distress/SOB or pain. Family at bedside. Patient continue to have hematuria, noted dark red color urine in the Calzada bag. Instructed on POC and to call for assist PRN, will continue to monitor for changes Q1hr and PRN. Bed placed in lowest position and call light within reach.
--- NOTE | 2019-03-20 03:25 | NUR ---
OPENING NOTE RECEIVED REPORT FROM PARAFFIN PLANT SWEATER OPERATOR RN. ASSUMING ROLE OF CARE OF PATIENT AT THIS TIME. PATIENT RESTING COMFORTABLY AT BEDSIDE. ANNE CONTINUES TO DRAIN DARK RED URINE. IV BAG REPLACED AT THIS TIME. BED LOWERED, CALL LIGHT WITHIN REACH, AND PATIENT WILL BE ROUNDED ON EVERY HOUR AND NEEDED.
--- NOTE | 2019-03-20 03:25 | NUR ---
Report given to Umang. Patient is resting in bed with eyes closed, no distress noted and patient denies pain.
[2019-03-20 05:22] LABS: Basophils # (auto) 0 uL; Basophils % (auto) 0.6 % (0.0-2.0); Eosinophils # (auto) 0.2 uL; Eosinophils % (auto) 2.4 % (0.0-7.0); Hematocrit 32.4 % (36.0-46.0); Hemoglobin 10.9 g/dL (12.2-16.2); Lymphocytes # (auto) 2.1 uL; Lymphocytes % (auto) 27.9 % (10.0-50.0); Mean Corpuscular Hemoglobin 29.9 pg (28.0-32.0); Mean Corpuscular Hgb Conc. 33.7 g/dL (32.0-36.0); Mean Corpuscular Volume 88.7 fL (80.0-100.0); Monocytes # (auto) 0.5 uL; Monocytes % (auto) 6.6 % (0.0-12.0); Neutrophils # (auto) 4.6 uL; Neutrophils % (auto) 62.5 % (37.0-80.0); Platelet Count (auto) 436 10^3/uL (140-450); Red Blood Cells 3.65 10^6/uL (4.0-5.20); Red Cell Distribution Width 14.8 % (11.8-14.3); White Blood Cell 7.4 10^3/uL (4.4-10.8)
[2019-03-20 05:35] VITALS: BP 115/68
[2019-03-20] MEDS: SIMETHICONE 80 MG CHEWABLE TABLET PO SCH ×4 (05:53→22:41)
--- NOTE | 2019-03-20 07:55 | NUR ---
DR. CAIN AT BEDSIDE DR. CAIN IS AWARE PT IS STILL HAVING DARK RED URINE OUTPUT. TOTAL OUTPUT DRAINED 1500ML AT THIS TIME. PER DR. CAIN SHE WILL KEEP THE PT FOR COUPLE OF DAYS. WILL CONTINUE TO MONITOR.
[2019-03-20 08:00] VITALS: BP 121/77
--- NOTE | 2019-03-20 08:17 | NUR ---
PT IS UP FOR A WALK, PT TOLERATED IT WELL.
[2019-03-20] MEDS: DOCUSATE CALCIUM 240 MG CAP PO SCH (09:08)
[2019-03-20] MEDS: cefTRIAXone 1GM/50ML D5W 50 ML IV SCH (09:08)
[2019-03-20] MEDS: FAMOTIDINE 20 MG TAB PO SCH (09:09)
--- NOTE | 2019-03-20 11:18 | NUR ---
urine sample sent to lab.
[2019-03-20 12:00] VITALS: BP 116/70
[2019-03-20 12:14] LABS: Urine Bacteria FEW /hpf (None Seen); Urine Blood 3+ /uL (Negative); Urine Specific Gravity 1.013 (1.001-1.035); Urine WBC 84 /hpf (0 - 5); Urine WBC Clumps PRESENT /hpf (None Seen)
[2019-03-20] MEDS: SOD CHL 0.9%/ KCL 20MEQ 1,000 ML IV SCH ×2 (16:01→17:15)
[2019-03-20 16:58] VITALS: BP 117/68
--- NOTE | 2019-03-20 19:25 | NUR ---
Opening Shift Note Received report from travis Harvey RN. Assumed care of patient, awake and alert. No S/S of distress/SOB or pain. Family at bedside. Patient continue to have hematuria, noted light red color urine in the Calzada bag. Instructed on POC and to call for assist PRN, will continue to monitor for changes Q1hr and PRN. Bed placed in lowest position and call light within reach.
[2019-03-20 22:00] VITALS: BP 123/77
--- NOTE | 2019-03-21 03:00 | NUR ---
URINE OUTPUT TOTAL URINE OUTPUT IS 3500ML OF LIGHT RED/EVELIN COLOR URINE.
[2019-03-21] MEDS: SOD CHL 0.9%/ KCL 20MEQ 1,000 ML IV SCH ×3 (03:02→21:46)
--- NOTE | 2019-03-21 04:49 | NUR ---
DR CAIN CALLED AND INQUIRE REGARDING PATIENT'S URINE OUTPUT.
[2019-03-21 04:55] VITALS: BP 114/74
[2019-03-21] MEDS: SIMETHICONE 80 MG CHEWABLE TABLET PO SCH ×4 (05:43→21:47)
--- NOTE | 2019-03-21 06:36 | NUR ---
PATIENT IS RESTING IN BED WITH EYES CLOSED, NO DISTRESS NOTED AND PATIENT DENIES PAIN.
[2019-03-21 08:00] VITALS: BP 126/87
--- NOTE | 2019-03-21 08:10 | NUR ---
MD CAIN AT BEDSIDE, EXCHANGE TROUBLE SHOOTER PROVIDED.
--- NOTE | 2019-03-21 08:26 | NUR ---
NEW ORDERS GIVEN BY MD CAIN, READ BACK AND VERIFIED. SEE ORDERS.
[2019-03-21] MEDS: cefTRIAXone 1GM/50ML D5W 50 ML IV SCH (09:32)
[2019-03-21] MEDS: FAMOTIDINE 20 MG TAB PO SCH (09:32)
[2019-03-21] MEDS: FLUCONAZOLE 100 MG TAB PO SCH (09:32)
[2019-03-21] MEDS: DOCUSATE CALCIUM 240 MG CAP PO SCH (10:00)
[2019-03-21] MEDS ORDERED: BISACODYL 10 MG RECT SUPP PR PRN (10:15)
[2019-03-21 12:00] VITALS: BP 120/79
--- NOTE | 2019-03-21 13:30 | NUR ---
PATIENT FAMILY AT BEDSIDE- REQUESTING TO SPEAK WITH MD COCOA PRESS OPERATOR PROVIDED. REQUESTING TO SPEAK WITH MD CAIN. LEFT MESSAGE WITH LABOR AND DELIVERY UNIT OF PATIENT AND FAMILY WISHES TO SPEAK WITH MD. WILL CONTINUE CARE.
[2019-03-21 17:00] VITALS: BP 119/78
[2019-03-21] MEDS: DOCUSATE SOD 100 MG CAP PO PRN (17:33)
--- NOTE | 2019-03-21 19:10 | NUR ---
Opening Shift Note Received report from travis Alberts RN. Assumed care of patient, awake and alert. No S/S of distress/SOB or pain. Patient is talking on the phone. Instructed on POC and to call for assist PRN, will continue to monitor for changes Q1hr and PRN. Bed placed in lowest position and call light within reach.
[2019-03-21 22:00] VITALS: BP 112/80
--- NOTE | 2019-03-21 22:21 | NUR ---
Urine output of 1000ml of abhishek color urine. Patient states she wanted to go for a walk. No distress noted and patient denies pain at this time.
--- NOTE | 2019-03-21 23:00 | NUR ---
Urine output is 400ml of clear yellow color urine. No distress noted and patient denies pain at this time.
[2019-03-22 05:04] VITALS: BP 119/67
--- NOTE | 2019-03-22 05:39 | NUR ---
Urine output of 1500ml of clear yellow urine. No distress noted and patient denies pain at this time.
[2019-03-22] MEDS: SIMETHICONE 80 MG CHEWABLE TABLET PO SCH ×2 (06:18→11:26)
[2019-03-22 09:00] VITALS: BP 128/69
[2019-03-22] MEDS: FLUCONAZOLE 100 MG TAB PO SCH (09:18)
[2019-03-22] MEDS: cefTRIAXone 1GM/50ML D5W 50 ML IV SCH (09:18)
[2019-03-22] MEDS: DOCUSATE SOD 100 MG CAP PO PRN (09:18)
[2019-03-22] MEDS: DOCUSATE CALCIUM 240 MG CAP PO SCH (09:19)
[2019-03-22] MEDS: FAMOTIDINE 20 MG TAB PO SCH (09:19)
[2019-03-22] MEDS: SOD CHL 0.9%/ KCL 20MEQ 1,000 ML IV SCH (09:30)
--- NOTE | 2019-03-22 10:00 | NUR ---
MD CAIN AT BEDSIDE. TRANSLATION PROVIDED. ALL QUESTIONS AND CONCERNS ADDRESSED. PATIENT VERBALIZED UNDERSTANDING. NEW ORDERS GIVEN, READ BACK AND VERIFIED.
[2019-03-22 10:31] VITALS: BP 126/69
--- NOTE | 2019-03-22 12:00 | NUR ---
ANNE CATHETER CHANGED TO LEG BAG PER ORDERS. PATIENT TOLERATED WELL. NO S/S OF DISTRESS.
--- NOTE | 2019-03-22 12:20 | NUR ---
Discharge instructions given as ordered. Translation provided. Encouraged to follow up with PMD as instructed. All questions and concerns addressed. Patient verbalized understanding. Medication reconciliation form completed and copy given to patient. IV removed with catheter intact, pressure dressing applied, johnson catheter not removed per MD orders. Patient ambulated with steady gait to vehicle with all personal belongings, accompanied by family members. No distress noted at time of departure.
== END 2019-03-22 12:20 | disposition home or self-care (01) | DRG 561 ==
LOC: ER 12:11 → OVERFLOW 12:12 → CENTRAL 20:14
PROVIDERS: ADMIT Nurse Practitioner Acute Care; ATTEND Internal Medicine Pulmonary Disease
DX: O85 Puerperal sepsis (principal); N12 Tubulo-interstitial nephritis, not specified as acute or chronic; E44.1 Mild protein-calorie malnutrition; O86.21 Infection of kidney following delivery; O86.12 Endometritis following delivery; D64.9 Anemia, unspecified; R31.0 Gross hematuria; E87.6 Hypokalemia; O25.3 Malnutrition in the puerperium; O90.81 Anemia of the puerperium; O99.285 Endocrine, nutritional and metabolic diseases complicating the puerperium; B96.89 Other specified bacterial agents as the cause of diseases classified elsewhere
CPT/HCPCS: 36415; 74176; 76775; 76856; 80048; 80053; 81001; 83605; 83690; 83735; 84702; 85025; 87040; 87081; 87086; 87088; 87186; 96361; 96365; 96367; G0378; J0696; J2543

== ENCOUNTER 2019-03-27 08:33 | Emergency (ER) | payer MEDICAID ==
[~2019-03-27 08:33] MED LIST changes: +IBUP800T24 PO; +NITR-52 PO
[2019-03-27] MEDS ORDERED: IOTHALAMATE MEGLUMINE INJ 250ML BOT UR ONE ×2 (09:08→09:48)
[2019-03-27 09:37] LABS: Albumin 3.4 g/dL (3.4-5.0); Calcium 9.2 mg/dL (8.5-10.1); Potassium 3.8 mmol/L (3.5-5.1)
[2019-03-27 09:40] LABS: BUN/Creatinine Ratio 18.3; Bilirubin, Total 0.2 mg/dL (0.2-1.0); Total Protein 7.8 g/dL (6.4-8.2)
[2019-03-27 11:07] VITALS: BP 112/81
== END 2019-03-27 11:03 | disposition home or self-care (01) ==
LOC: ER 08:37
DX: R31.9 Hematuria, unspecified (principal); R10.30 Lower abdominal pain, unspecified; Z48.01 Encounter for change or removal of surgical wound dressing; Z79.899 Other long term (current) drug therapy
CPT/HCPCS: 36415; 74430; 80053; 99284; Q9958

== ENCOUNTER 2019-09-16 11:30 | Emergency (ER) | payer MEDICAID ==
[~2019-09-16] VITALS: Ht 167.6 cm; Wt 69.4 kg
[2019-09-16 12:04] VITALS: BP 124/72
== END 2019-09-16 15:15 | disposition left against medical advice (07) ==
LOC: ER 11:30
DX: R10.9 Unspecified abdominal pain (principal); Z53.21 Procedure and treatment not carried out due to patient leaving prior to being seen by health care provider

== ENCOUNTER 2021-03-08 08:35 | Emergency (ER) | payer MEDICAID ==
[~2021-03-08] VITALS: Ht 165.1 cm; Wt 56.7 kg
[~2021-03-08 08:35] MED LIST changes: -IBUP800T24 PO; +IBUP800T27 PO
[2021-03-08 09:14] VITALS: BP 124/69
[2021-03-08] MEDS ORDERED: methylPREDNISolone SOD SUCC 125 MG/2 ML VL IM ONE (09:30)
[2021-03-08] MEDS ORDERED: EPINEPHrine HCL 1 MG/1 ML AMP SC ONE (09:30)
== END 2021-03-08 10:00 | disposition home or self-care (01) ==
LOC: ER 08:35
DX: T78.40XA Allergy, unspecified, initial encounter (principal); Z79.1 Long term (current) use of non-steroidal anti-inflammatories (NSAID); Z79.899 Other long term (current) drug therapy; Y92.89 Other specified places as the place of occurrence of the external cause
CPT/HCPCS: 96372; 99284; J0171; J2930; J7030